=== PATIENT | female | born 1950 | race Caucasian/White ===

== ENCOUNTER 2017-07-02 19:05 | Emergency (ER) | payer OTHER ==
[~2017-07-02] VITALS: Ht 167.6 cm; Wt 111.1 kg
[~2017-07-02 19:05] MED LIST: CALCIUM + D 6001 TAB PO; CELEBREX200 M1 PO; CO Q-10200 MG PO; COQ10 IN OIL 101 SGL PO; ESTRADIOL1 MG PO; IBUPROFEN600 M1 PO; LEVOTHYROXINE0.15 M1 PO; LEVOXYL150 MCG PO; MAGNESIUM400 M1 PO; METAXALONE800 M1 PO; PERCOCET 5-3251 EACH PO; PROZAC10 MG PO; PROZAC40 M1 PO; SYNTHROID75 MCG PO; VITAMIN D1000 IU PO; VITAMIN D32000 UNIT PO
[2017-07-02 19:09] VITALS: BP 93/68
--- NOTE | 2017-07-02 19:43 | RADIOLOGY REPORT ---
EXAMINATION: XR WRIST, RIGHT CLINICAL INFORMATION: Fall with pain COMPARISON: 12/19/2015 TECHNIQUE: PA, lateral, oblique, and scaphoid views of the right wrist. FINDINGS: There is a mildly impacted distal radial metaphyseal fracture. There is dorsal angulation of the distal fragment. No intra-articular extension. The carpal rows are appropriately aligned. Joint spaces are maintained. Small marginal osteophytes of the first carpometacarpal joint. Soft tissue swelling seen at the fracture site. IMPRESSION: Distal radial metaphyseal fracture with mild impaction and dorsal angulation of the distal fragment.
[2017-07-02] MEDS ORDERED: NORCO 5-325 TA1 EACH PO (20:44)
--- NOTE | 2017-07-02 20:46 | ED HAND/WRIST INJURY COMPLAINT ---
History of Present Illness General Chief Complaint: Hand or Wrist Injury Stated Complaint: R WRIST INJURY Source: patient Exam Limitations: no limitations Vital Signs & Intake/Output Vital Signs & Intake/Output Vital Signs Date Time Temp Pulse Resp B/P B/P Pulse O2 O2 Flow FiO2 Mean Ox Delivery Rate 07/02 1909 97.4 108 20 93/68 95 Room Air Allergies Coded Allergies: gluten (GI SXS 08/07/15) Reconcile Medications Celecoxib (Celebrex) 200 MG CAPSULE 1 CAP PO DAILY PAIN (Reported) Estradiol 1 MG TAB 1 MG PO DAILY HORMONE REPLACEMENT (Reported) Fluoxetine HCl (Prozac) 40 MG CAPSULE 1.5 CAP PO DAILY MENTAL HEALTH ( Reported) Hydrocodone/Acetaminophen (Doss 5-325 Tablet) 5 MG-325 MG TABLET 1-2 TAB PO Q4-6 PRN PRN PAIN Levothyroxine Sodium (Synthroid) 75 MCG TABLET 1 TAB PO EOD THYROID (Reported ) Levothyroxine Sodium (Levoxyl) 150 MCG TABLET 1 TAB PO EOD THYROID (Reported) Triage Note: 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 PT C/O R WRIST PAIN. DENIES NUMBNESS, TINGLING IN FINGERS. LIMITED ROM. ICE PACK PROVIDED. Triage Nurses Notes Reviewed? yes Occurred: just prior to arrival Duration: hour(s): (3), constant, continues in ED Timing: single episode today Injury Environment: park Severity: moderate, severe Severity Numbers: 8 Pain/Injury Location: Right: Wrist. Context: fall Method of Injury: fall No Modifying Factors: none Associated Symptoms: swelling LMP (ages 10-50): post menopausal, unknown : No Patient currently breastfeeds: No HPI: [age] female has medical history of obesity, hypothyroidism, sensory evaluation after a fall. Patient states she was walking on a trail when she tripped and fell on her right outstretched hand. There is no history could loss of consciousness. She sustained an abrasion to the right knee and right elbow but no other injuries. She reports pain on the radial aspect of the right wrist. It is worse with movement. No numbness or tingling. No pain with range of motion of the elbow or shoulder. No chest pain shortness of breath or dizziness before the fall. No blood thinners. (Skip Drummond) Past History Travel History Traveled to [place] past 21 day No Medical History Any Pertinent Medical History? 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 No (Skip Drummond) Review of Systems Review of Systems Constitutional: Reports: no symptoms. EENTM: Reports: no symptoms. Respiratory: Reports: no symptoms. Cardiovascular: Reports: no symptoms. GI: Reports: no symptoms. Genitourinary: Reports: no symptoms. Musculoskeletal: Reports: see HPI, joint pain, joint swelling, muscle pain. Skin: Reports: no symptoms. Neurological/Psychological: Reports: no symptoms. Hematologic/Endocrine: Reports: no symptoms. Immunologic/Allergic: Reports: no symptoms. All Other Systems: Reviewed and Negative (Skip Drummond) Physical Exam Physical Exam General Appearance: well developed/nourished, no apparent distress, alert, awake , obese Head: atraumatic, normal appearance Eyes: Bilateral: normal appearance, EOMI. Ears, Nose, Throat: hearing grossly normal Neck: normal inspection, supple, full range of motion Cardiovascular/Respiratory: normal breath sounds, normal peripheral pulses, regular rate/rhythm, no respiratory distress Gastrointestinal: soft nontender Back: normal inspection, normal range of motion, no vertebral tenderness Shoulder Left: normal range of motion, normal inspection Shoulder Right: normal range of motion, normal inspection Elbow Left: normal range of motion, normal inspection Elbow Right: normal range of motion, abrasions/lacerations (superficial abrasions) Forearm Left: normal range of motion, normal inspection Forearm Right: normal range of motion, normal inspection Wrist Left: normal range of motion, normal inspection Wrist Right: swelling, tenderness, evidence of injury, soft tissue tenderness, limited range of motion, there is swelling and pain to palpation on the radial aspect of the wrist. She does have snuffbox tenderness. No bruising no erythema. 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 She has an impacted right radial fracture and snuffbox tenderness after a fall on outstretched hand. There is no history of loss of conscious. Neurovascular supply intact. Patient was placed into a thumb spica splint. She tolerated well. Rest ice elevation depression. Tylenol 100 Profen for pain and Doss for severe pain. Follow-up with orthopedics discussed return precautions patient agrees with plan. Case discussed with Dr. hampton he agrees. Diagnostic Imaging: Viewed by Me: Radiology Read. Discussed w/RAD: Radiology Read. Radiology Impression: PATIENT: ARTHUR WILEY PRESENT AGE: 67 PATIENT ACCOUNT NO: [id number] : 51 LOCATION: [facility] ORDERING PHYSICIAN: Velasquez DE LEÓN SERVICE DATE: 07/02/17 EXAM TYPE: RAD - XRY-WRIST COMPLETE-RIGHT EXAMINATION: XR WRIST, RIGHT CLINICAL INFORMATION : Fall with pain COMPARISON: 12/19/2015 TECHNIQUE: PA, lateral, oblique, and scaphoid views of the right wrist. FINDINGS: There is a mildly impacted distal radial metaphyseal fracture. There is dorsal angulation of the distal fragment. No intra-articular extension. The carpal rows are appropriately aligned. Joint spaces are maintained. Small marginal osteophytes of the first carpometacarpal joint. Soft tissue swelling seen at the fracture site. IMPRESSION: Distal radial metaphyseal fracture with mild impaction and dorsal angulation of the distal fragment. DICTATED BY: Christiano Woods MD DATE/TIME DICTATED:07/02/171936 METAL ROASTER:GISELLE DATE/TIME TRANSCRIBED:07/02/171936 CONFIDENTIAL, DO NOT COPY WITHOUT APPROPRIATE AUTHORIZATION. <Electronically signed in Other Vendor System> SIGNED BY: Christiano oWods MD 07/02/171942 (Skip Drummond) Departure Departure Disposition: HOME OR SELF CARE Condition: Stable Clinical Impression Primary Impression: Radius fracture Qualifiers: Encounter type: initial encounter Radius location: distal Fracture type: closed Fracture morphology: unspecified fracture morphology Laterality: right Qualified Code: S52.501A - Unspecified fracture of the lower end of right radius, initial encounter for closed fracture Referrals: Pia BRYAN,Bala Ngo (PCP/Family) Ian Bueno MD Additional Instructions: Rest, avoid excessive physical activity of lifting or bending. Use Tylenol for pain Doss for severe pain only. Apply ice to 50-20 minutes every few hours where splint at all times. Make a follow-up with provided orthopedic doctor Dr. Bueno as soon as possible. Monitor symptoms return with any concerns. Departure Forms: Customer Survey General Discharge Information Prescriptions: Current Visit Scripts Hydrocodone/Acetaminophen (Doss 5-325 Tablet) 1-2 TAB PO Q4-6 PRN PRN PAIN #10 TAB (Skip Drummond) PA/WAREHOUSE ASSOCIATE Co-Sign Statement Statement: ED Attending supervision documentation- x I saw and evaluated the patient. I have also reviewed all the pertinent lab results and diagnostic results. I agree with the findings and the plan of care as documented in the PA's/WAREHOUSE ASSOCIATE's documentation. [] I have reviewed the ED Record and agree with the PA's/WAREHOUSE ASSOCIATE's documentation. [] Additions or exceptions (if any) to the PAs/WAREHOUSE ASSOCIATE's note and plan are summarized below: [] (Dixon BRYAN,Alfredo) Procedures Splinting Location: right wrist Manual Alignment Performed: No Hand-Made Type: orthoglass Splint: thumb spica Splint Applied By: splint applied by me Pre-Proc Neuro Vasc Exam: normal Post-Proc Neuro Vasc Exam: normal (Skip Drummond)
== END 2017-07-02 21:14 ==
LOC: ERH 19:05
DX: S59.201A Unspecified physeal fracture of lower end of radius, right arm, initial encounter for closed fracture (principal); W18.09XA Striking against other object with subsequent fall, initial encounter; Y93.01 Activity, walking, marching and hiking; Y92.830 Public park as the place of occurrence of the external cause
CPT/HCPCS: 73110-RT

== ENCOUNTER → 2017-07-07 | Day surgery (SDC) | payer OTHER ==
[~2017-07-07] VITALS: Ht 167.6 cm; Wt 111.1 kg
[~2017-07-07] MED LIST changes: +NORCO 5-325 TA1 EACH PO
--- NOTE | 2017-07-07 09:46 | Operative Report ---
Operative/Inv Procedure Report Surgery Date: 07/07/17 Name of Procedure: Open reduction internal fixation of comminuted and displaced right distal radius fracture Pre-Operative Diagnosis: Displaced and comminuted right distal radius fracture Post-Operative Diagnosis: Same Estimated Blood Loss: scant Surgeon/Pipe Bowl Paint Trimmer: Clive BRYAN,Kendrick Heck Anesthesia: laryngeal mask airway, block Implants: Standard DVR plate right side Drains: None Specimens: None Tourniquet: 43 minutes Complications: None Condition: Stable Operative Indication: Patient is a 67-year-old woman who injured her right dominant wrist while hiking last week. She was found to have a displaced and comminuted distal radius fracture with significant dorsal intra-articular comminution. Due to the displacement and instability of this type of fracture, we discussed options of surgical and nonsurgical as well as risks benefits and expectations of both surgical and nonsurgical options. I recommended surgical option of ORIF. The risks benefits and expectations included but were not limited to persistent wrist pain, stiffness, need for subsequent surgery, infection, injury to blood vessel or nerve and anesthesia risks, malunion nonunion. Patient wished to proceed with surgical management Operative/Procedure Note Note: Patient was brought to the operating room and transferred to the operating table. Once under appropriate anesthesia the right upper extremity was prepped and draped in standard fashion. Preoperative IV and box were given prophylactically. Right upper extremity was elevated exsanguinated and tourniquet was inflated to 250 mm pressure. A standard incision over the volar aspect of the distal radius was made just short of the proximal wrist crease. Incision was taken down bluntly and retractors were placed to protect the radial artery and median nerve. I incised the tendon sheath of the FCR and was able to identify the fracture site. There was some shredding of the quadratus from the original trauma. Fracture was found to be comminuted and tra-articular. Copious irrigation followed. I then reduced the fracture and checked on the fluoroscopic image. I chose a right DVR plate narrow and applied it to the volar aspect. The distal pin and proximal pin was placed through the plate and into patient's distal radius for positioning purposes. Fluoroscopic images revealed good positioning of the plate and reduction of the fracture. I then placed one bicortical screw in the oblong hole of the DVR plate to maintain position. I then started to place distal screws starting from ulnar to radial in the proximal row. These measured 22 mm. These were partially threaded screws and there were placed after drilling measuring and placing appropriate length screws. A distal screw screw holes were filled with pegs in similar fashion. I did check the fluoroscopic images to make sure there was no intra- articular compromise with the hardware. I was satisfied that there was none. No crepitus to range of motion of the wrist. No evidence of instability at the fracture site. I then turned my attention to the proximal fixation. 2 more bicortical screws are placed in standard fashion by drilling measuring and placing appropriate length screws. Final x-rays were taken with the fluoroscopic image. I was satisfied with the position of the hardware, reduction of the fracture. Copious irrigation of the wound followed. Closure followed with subcutaneous case tissue closure with 3-0 Vicryl and skin was closed with a running Prolene suture. Appropriate dressings were applied and patient was awakened and taken the recovery room in good condition. She was splinted prior to tourniquet inflation. Tourniquet time 43 minutes Discharge Disposition: PACU
== END ==
LOC: STS 02:08
DX: S52.531A Colles' fracture of right radius, initial encounter for closed fracture (principal); Y93.01 Activity, walking, marching and hiking; E03.9 Hypothyroidism, unspecified; D64.9 Anemia, unspecified; E66.01 Morbid (severe) obesity due to excess calories; Z68.41 Body mass index [BMI] 40.0-44.9, adult
CPT/HCPCS: 93005; 93010; C1713; C9290; J0690; J2250